=== PATIENT | female | born 2000 | race Caucasian/White ===

== ENCOUNTER 2023-09-02 12:50 | Emergency (ER) | payer MEDICAID, SELFPAY ==
[2023-09-02 13:13] VITALS: BP 121/52; PULSE 64; RESP 18; TEMP 36.6; O2SAT 100
--- NOTE | 2023-09-02 15:13 | ED.SKABFB ---
HPI - Skin/Abscess/Foreign Bdy General Chief complaint: Skin/Abscess/Foreign Body Stated complaint: rash Time Seen by Provider: 09/02/23 14:56 Source: patient Mode of arrival: ambulatory Limitations: no limitations History of Present Illness HPI narrative: This is a 22 year old female, about 16 weeks , that presents to the ER for itchy rash present since yesterday. Reports she has been on Amoxicillin for a little over a week for a toothache. Denies fevers. Related Data Allergies Allergy/AdvReac Type Severity Reaction Status Date / Time No Known Allergies Allergy Verified 09/02/23 14:58 Review of Systems Review of Systems: CONSTITUTIONAL: Denies fever SKIN: Reports rash and itching. All systems reviewed & are unremarkable except as noted in HPI and below PMFSH Past Medical History Medical History (Updated 09/02/23 @ 15:20 by Dulce Huggins PA-C) No active medical problems Social History Social History (Updated 09/02/23 @ 15:20 by Dulce Huggins PA-C) Substance use: never Exam Narrative: GENERAL: Well-appearing, well-nourished, and in no acute distress. HEAD: Normocephalic, atraumatic. EYES: EOMI. ENT: Tooth #3 is decaying, no surrounding erythema or edema EXTREMITIES: Normal range of motion. No edema. SKIN: Warm, dry. Diffuse maculopapular rash NEURO: No focal deficits. Alert and oriented x3. PSYCH: Normal mood and affect Course Consultations Consultation #1: Spoke with Dr. Miller who agrees with plan of care Date: 09/02/23 Vital Signs Vital signs: Vital Signs Temperature 97.9 F 09/02/23 13:13 Pulse Rate 64 09/02/23 13:13 Respiratory Rate 18 09/02/23 13:13 Blood Pressure 121/52 L 09/02/23 13:13 Pulse Oximetry 100 09/02/23 13:13 Temperature 97.9 F 09/02/23 13:13 Pulse Rate 64 09/02/23 13:13 Respiratory Rate 18 09/02/23 13:13 Blood Pressure 121/52 L 09/02/23 13:13 Pulse Oximetry 100 09/02/23 13:13 Procedures Other Procedure Procedure 1: Other Procedure: heart tones noted at 140 MDM - Skin/Abscess/Foreign Bdy MDM Narrative Medical decision making narrative: Patient presents to the emergency department for an itchy rash ongoing since yesterday. Reports started about 5 days into amoxicillin. She was on this for a toothache. There is no abscess of her tooth on exam. She was instructed she should follow up with a dentist for this. Instructed to stop her amoxicillin as it may be a reaction to this. Will be started on antihistamines and a steroid taper. Spoke with Dr. Miller who agrees with plan of care. She was given warnings to return to the ER Differential Diagnosis Differential diagnosis: Likely viral exanthem, urticaria and allergic reaction to drug Critical Care Time Critical Care Time Critical Care Time: No Discharge Plan Discharge Clinical Impression: Rash and nonspecific skin eruption Patient Disposition: Home, Self-Care Condition: Stable Instructions: Acute Rash (ED) Additional Instructions: Return to the emergency department if you experience fever, difficulty swallowing, trouble breathing, or any other symptoms that are concerning to you Stop Amoxicillin. Take a Pepcid and Zyrtec daily. Take steroid taper as prescribed. 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
== END 2023-09-02 15:37 | disposition home or self-care (01) ==
PROVIDERS: Emergency Provider Physician Assistant
DX: O99.892 Other specified diseases and conditions complicating childbirth (principal); R21 Rash and other nonspecific skin eruption; Z3A.16 16 weeks gestation of pregnancy
CPT/HCPCS: 99283

== ENCOUNTER 2024-01-07 10:42 | Observation (INO) | payer OTHER, SELFPAY ==
[2024-01-07] VITALS (13 sets, daily range): BP systolic 106–129; BP diastolic 53–84; PULSE 61–81; RESP 16; TEMP 36.6–37.1; BMI 28.3
--- NOTE | 2024-01-07 11:30 | OBADM ---
This patient, Johanna Mejia, admitted to the OB room OB Post 116 for observation. Patient/family oriented to hospital policies and general routines including ID bracelet, bed and alarms, visiting hours, pain management, procedures, bathroom and other care routines, personal items, smoking policy, room service/diet, and visiting hours. Patient/Family are encouraged to report perceived risks to care and to ask questions if they do not understand what they are told or what they should do.
--- NOTE | 2024-01-26 12:20 | PM.OBTRLD ---
OB - Triage/Final Diagnosis Visit Information Comments/Additional reasons for admission: I have assessed the risk for this patient, Johanna Castrockman, and determined that she would benefit from observation care. Final Diagnosis (1) Bleeding after intercourse: Code(s): N93.0 - Postcoital and contact bleeding Status: Acute
== END 2024-01-07 17:31 | disposition home or self-care (01) ==
PROVIDERS: Admitting Provider Obstetrics & Gynecology; Visit Provider Obstetrics & Gynecology
DX: O26.893 Other specified pregnancy related conditions, third trimester (principal); N93.0 Postcoital and contact bleeding; Z3A.34 34 weeks gestation of pregnancy
CPT/HCPCS: G0378; G0379

== ENCOUNTER 2024-02-01 11:57 | Outpatient (CLI) | payer OTHER, SELFPAY ==
[2024-02-01 12:47] VITALS: BP 120/71; PULSE 87
== END 2024-02-01 12:55 | disposition home or self-care (01) ==
LOC: ANHOBOP 12:42
PROVIDERS: Visit Provider Obstetrics & Gynecology
DX: O41.8X90 Other specified disorders of amniotic fluid and membranes, unspecified trimester, not applicable or unspecified (principal); Z3A.00 Weeks of gestation of pregnancy not specified
CPT/HCPCS: 59025

== ENCOUNTER 2024-02-12 04:55 | Inpatient (IN) | payer OTHER, SELFPAY ==
[2024-02-12] VITALS (90 sets, daily range): BP systolic 91–147; BP diastolic 52–122; PULSE 53–179; RESP 16–18; TEMP 36.7–37.6; O2SAT 95–100; BMI 29.5
[2024-02-12] MEDS: LACTATED RINGERS 1,000 ML 125 ML IV CONT ×2 (05:39→07:44)
[2024-02-12] MEDS: OXYTOCIN 30 UNITS/NS 500 ML 30 UNITS/500 ML BAG 6 UNITS IV CONT (05:39)
[2024-02-12 05:48] LABS: Basophils Absolute Auto 0.1 K/mm3 (0.0-0.1); Basophils Percent Auto 0.3 % (0.2-1.2); Eosinophils Absolute Auto 0.1 K/mm3 (0-0.3); Hematocrit 32.3 % (37.0-47.0); Hemoglobin 10.9 g/dL (12.0-15.0); Immature Granulocyte Absolute 0.07 K/mm3 (0.00-0.031); Immature Granulocyte Percent A 0.5 % (0-0.5); Lymphocytes Absolute Auto 3.13 K/mm3 (0.9-3.2); Lymphocytes Percent Auto 21.5 % (18.3-44.2); Mean Corpuscular HGB Conc 33.7 g/dl (32-36); Mean Corpuscular Hemoglobin 27.7 pg (26-34); Mean Corpuscular Volume 82.2 fl (80-100); Mean Platelet Volume 12.1 fl (7.4-10.4); Monocytes Absolute Auto 0.9 K/mm3 (0.1-0.6); Monocytes Percent Auto 6.2 % (2.6-8.5); Neutrophils Absolute Auto 10.3 K/mm3 (1.3-6.7); Neutrophils Percent Auto 70.5 % (45.5-73.1); Platelet Count Result 120 k/mm3 (150-375); Red Blood Count 3.93 M/mm3 (4.2-5.4); Red Cell Distribution Width 13.8 % (11.5-14.5); White Blood Count 14.5 K/mm3 (4.5-10.0)
--- NOTE | 2024-02-12 05:48 | LDADM ---
This patient, Johanna Mejia, was admitted to Labor/Delivery/Recovery 106 on 02/12/24 at 04:55. Plans for labor, pain management and were discussed with patient. Patient/family oriented to hospital policies and general routines including ID bracelet, bed and alarms, visiting hours, pain management, procedures, bathroom and other care routines, personal items, smoking policy, room service/diet and guest tray routines, infant security routines, and visiting hours. Patient/Family are encouraged to report perceived risks to care and to ask questions if they do not understand what they are told or what they should do. See OBIX for further documentation.
[2024-02-12 06:39] LABS: HIV 1/2 Ab P24 Ag Result Negative (Negative)
--- NOTE | 2024-02-12 07:14 | WPDANESEPP ---
Anes - Eval Pre Procedure Procedure: labor epidural Date/Time: 02/12/24 07:14 Preop Diagnosis: Hulsen Pre Op Diagnosis: IOL Patient Data Age: 23 Gender: F Height: 1.7 m Weight: 85.5 kg Last Vital Signs Temp 37.2 C 02/12/24 06:40 Pulse 80 02/12/24 07:00 BP 136/80 02/12/24 07:00 O2 Del Method Room Air 02/12/24 04:55 Allergies Allergy/AdvReac Type Severity Reaction Status Date / Time amoxicillin Allergy Rash Verified 02/03/24 09:48 Home Medications Medication Instructions Recorded Confirmed Type vit no.95-ferrous 1 tablet PO DAILY 01/07/24 02/03/24 History fumarate 28 mg-folic acid 800 mcg tablet () Laboratory Tests 02/12/24 05:11 WBC 14.5 H K/mm3 (4.5-10.0) RBC 3.93 L M/mm3 (4.2-5.4) Hgb 10.9 L g/dL (12.0-15.0) Hct 32.3 L % (37.0-47.0) MCV 82.2 fl (80-100) MCH 27.7 pg (26-34) MCHC 33.7 g/dl (32-36) RDW 13.8 % (11.5-14.5) Plt Count 120 L k/mm3 (150-375) MPV 12.1 H fl (7.4-10.4) Immature Gran % (Auto) 0.5 % (0-0.5) Neut % (Auto) 70.5 % (45.5-73.1) Lymph % (Auto) 21.5 % (18.3-44.2) Whitley % (Auto) 6.2 % (2.6-8.5) Eos % (Auto) 1.0 % (0-4.4) Baso % (Auto) 0.3 % (0.2-1.2) Lymph # (Auto) 3.13 K/mm3 (0.9-3.2) Whitley # (Auto) 0.9 H K/mm3 (0.1-0.6) Eos # (Auto) 0.1 K/mm3 (0-0.3) Baso # (Auto) 0.1 K/mm3 (0.0-0.1) Abs Immat Gran (auto) 0.07 H K/mm3 (0.00-0.031) Absolute Neuts (auto) 10.3 H K/mm3 (1.3-6.7) Absolute Nucleated RBC 0.000 K/mm3 (0.0-0.012) Nucleated RBC % 0.0 % (0.0-0.2) RPR Pending HIV 1&2 Ab/P24 Ag 4thGn Negative (Negative) Blood Type A Positive Antibody Screen Negative Patient hx anesthesia problems: none Family hx anesthesia problems: none Results Review: All pre-operative results and documents have been reviewed as part of the pre-operative evaluation. [facility], [facility] Past Medical History Medical History No active medical problems Family History Family History Sibling Congestive heart failure Social History Social History Smoking status: Never smoker Second hand tobacco smoke exposure: No Substance use: never Do You Feel Safe in your Home?: Yes Lack of Transportation: No Lack of Food: Never True Current Housing: I Have Housing Concerned About Future Housing: No Difficulty Paying Gas/Electric Bills: No Difficulty Paying for Meds: No Currently Unemployed: No Education: High School Diploma/GED Difficulty w/ Childcare or Family Care: No Spiritual care concerns: No Exam Day of Procedure 02/12/24 07:14 Patient weight: overweight Heart: regular rate and rhythm Lungs: clear to auscultation Airway: Mallampati scale class II Neurological: alert and oriented
[2024-02-12] MEDS: ACETAMINOPHEN 500 MG TABLET 1000 MG PO (08:23)
--- NOTE | 2024-02-12 08:40 | WPDOBADMIT ---
Obstetrics - Admit Note Admission Note: record reviewed. Additions to the history and/or subsequent changes in the physical findings follow. 23 y/o G1 at 39 1/7 weeks here desiring induction of labor. GBS neg. Receiving oxytocin. She is comfortable with epidural and just had SROM with clear fluid. AVSS NST reactive TOCO: contractions every 2-3 min ABD soft, nontender, gravid, vertex EXT nontender Cervix 5/90/0. Vertex. A: IUP at term with favorable cervix, now with SROM. P: Continue labor. Anticipate .
--- NOTE | 2024-02-12 10:35 | PM.OBPRVD ---
OB - Vaginal Delivery Note Procedure Delivery date: 02/12/24 Induction method: Per Pitocin Protocol Delivery monitor: External FHT and External Uterine Route of delivery: Episiotomy description: None Laceration Description: Vaginal (Right labial, left distal vaginal lacerations) Delivery repair: vicryl (3-0) Specimen: Yes (cord blood) Quantitative Blood Loss (ml): 350 Anesthesia type: Epidural Disposition: PACU Complications: None Narrative: 23 y/o G1 at 39 1/7 weeks gestation who presented to the hospital for induction of labor. Oxytocin was administered intravenously. Amniotomy was performed with return of clear fluid. She received an epidural for pain control. Her labor progressed and her cervix dilated completely. She pushed with good effort and delivered the 's head to the perineum, followed by the body. The nose and mouth were bulb suctioned. After a delay, the cord was clamped and cut. The infant was handed off the field. Cord blood was collected. The placenta delivered spontaneously and was grossly normal in appearance. The usual 3 vessel cord was noted. A right labial laceration and a left distal vaginal laceration were sustained. These were reapproximated using 3 0 Vicryl in interrupted figure of eight fashion. Excellent hemostasis resulted as did excellent reapproximation of the normal anatomy. Needle and instrument counts were correct. The patient was taken to recovery room in stable condition. The went to the nursery in stable condition. I was present and scrubbed for the entire delivery. [place] Baby Date of : 02/12/24 Time of : 10:15 Weeks of gestation at delivery: 39 Infant gender: Male Weight (pounds): 7 Weight (ounces): 1 presentation: vertex position: Left Occiput Anterior Placenta delivery description: Spontaneous and Normal Configuration Cord Vessel Description: 3 Vessels and Delayed Cord Clamping score one minute: 8 score five minutes: 8
--- NOTE | 2024-02-12 10:41 | PM.OBDSVD ---
DS: Admitting Diagnosis Discharge Date 02/14/24 Admitting Diagnosis IUP at 39 1/7 weeks DS: Discharge Diagnosis Discharge Diagnosis (1) (normal spontaneous vaginal delivery): Code(s): O80 - Encounter for full-term uncomplicated delivery Status: Acute OB - DS: Summary OB Procedures : None OB Procedures Intrapartum: Spontaneous Vag Delivery OB Procedures: : None Peripartum Data Laceration Description: Vaginal (Right labial, left distal vaginal lacerations) Episiotomy description: None Time Spent with Patient Time attestation: Total time spent providing and/or coordinating discharge services: DS: Data Data Completed and Pending Labs on day of discharge: Labs from last 24 hours 02/12/24 05:11 WBC 14.5 H RBC 3.93 L Hgb 10.9 L Hct 32.3 L MCV 82.2 MCH 27.7 MCHC 33.7 RDW 13.8 Plt Count 120 L MPV 12.1 H Immature Gran % (Auto) 0.5 Neut % (Auto) 70.5 Lymph % (Auto) 21.5 Anderson % (Auto) 6.2 Eos % (Auto) 1.0 Baso % (Auto) 0.3 Lymph # (Auto) 3.13 Anderson # (Auto) 0.9 H Eos # (Auto) 0.1 Baso # (Auto) 0.1 Abs Immat Gran (auto) 0.07 H Absolute Neuts (auto) 10.3 H Absolute Nucleated RBC 0.000 Nucleated RBC % 0.0 RPR Pending HIV 1&2 Ab/P24 Ag 4thGn Negative Blood Type A Positive Antibody Screen Negative Discharge Plan Discharge Attending physician on discharge: Liang Miller Discharging Clinician: Rocio Puri Anticipated Discharge Date/Time: 02/14/24 07:53 Patient Disposition: Home, Self-Care Activity: pelvic rest Diet: regular Discharge Instructions: Education: Mom and Baby Guide Given to: Mother Follow-Up: Call your delivering provider's office for an appointment to be seen in: 6 Weeks Mom and baby should come to the [facility] for the follow-up appointment. Appointment Date/Time:TBD Call [phone] if you are unable to keep your appointment time. BREAST CARE: * Wear a snug supportive bra. * For engorgement discomfort: Breast Feeding: * Apply warm moist washcloths * Express milk as needed to relieve engorgement * Wear loose clothing Bottle Feeding: * May apply ice packs * For sore nipples: * Identify correct latch-on * Apply warm moist washcloths before and after nursing * Air dry nipples after nursing * May apply Lansinoh cream to nipples PERINEAL CARE: * Until bleeding stops, use your aroldo bottle after urinating * Change your pad frequently throughout the day * You may take sitz baths several times a day (fill your bathtub with warm water and soak for 20 minutes.) Do NOT bathe in the water * No tub baths until seen by your physician - You may shower ACTIVITY: * Rest as much as possible. * Do not exercise or lift anything heavier than your baby (such as laundry or other children.) * Avoid stairs or driving as much as possible. * Do not put anything into the vagina. No douching, tampons, or sexual activity until seen by physician. NOTIFY PHYSICIAN IF YOU HAVE ANY QUESTIONS OR IF ANY OF THE FOLLOWING SYMPTOMS OCCUR: * If your episiotomy or incision becomes red, swollen, or more painful than what you have experienced in the hospital. * If your vaginal bleeding becomes foul smelling. * If your vaginal bleeding becomes more heavy than a period or if your bleeding changes from pink to bright red. However, you may pass an occasional walnut-sized clot once or twice for the first week . * If you experience a sharp, shooting pain in you calves. * If you discover a hard, reddened area on your breast or if you experience flu-like symptoms. DIET: * Eat regular, well-balanced meals. * Drink plenty of fluids daily. If , drink to thirst. Per Dr. Susan Alvarez, Call or return if temperature above 100.4? F, increased abdominal pain, increased vaginal bleeding or any n
[2024-02-12] MEDS: OXYTOCIN 30 UNITS/NS 500 ML 30 UNITS/500 ML BAG 125 UNITS IV CONT (10:49)
[2024-02-12 12:58] LABS: Rapid Plasma Reagin Non-Reactive (NonReactive)
--- NOTE | 2024-02-12 13:10 | OBPPTRN ---
Patient transferred to post room #292 via wheelchair. Support person present. Oriented to unit, room, information board, rooming in, admission packet and security measures. Patient verbalizes understanding.
[2024-02-13] MEDS: IBUPROFEN 600 MG TABLET PO ×2 (00:18→11:21)
[2024-02-13 04:34] VITALS: BP 108/61; PULSE 69; RESP 16; TEMP 36.8; O2SAT 100
[2024-02-13 05:05] LABS: Hematocrit 31.9 % (37.0-47.0)
--- NOTE | 2024-02-13 05:55 | PM.OBPNVD ---
OB - PN: Subj Subjective Date/time seen: 02/13/24 05:55 Patient comments: no complaints and pain well controlled baby status: doing well OB - PN: Obj Data Labs 02/13/24 04:33 Labs: Laboratory Results - last 24 hr 02/12/24 02/13/24 05:11 04:33 Hgb 10.0 L Hct 31.9 L RPR Non-reactive HIV 1&2 Ab/P24 Ag 4thGn Negative Blood Type A Positive Antibody Screen Negative OB - PN A/P Plan day: 1 Plan: routine care Time Spent With Patient Time: Total time spent is greater than 50% in coordination of care (as documented) at patient's floor/unit and/or counseling patient: Time with patient: less than 15 minutes Exam Const: General: cooperative, healthy appearing and comfortable Nutritional Appearance: average body habitus Orientation/consciousness: oriented to person, oriented to place and oriented to time Resp: Effort & Inspection: normal respiratory effort GI: Inspection: normal to inspection
[2024-02-13 09:40] VITALS: BP 114/51; PULSE 75; RESP 16; TEMP 37.3; O2SAT 98
--- NOTE | 2024-02-13 10:48 | WPDANLDPN2 ---
Anes-Prog Note L&D Date/Time: 02/13/24 10:48 Comfortable throughout: labor and delivery Neuraxial method: epidural Epidural/Spinal procedure site: tender Neuro status: Neuro function grossly intact. Cardiovascular status: normal Respiratory status: normal Airway patency: baseline Mental status: baseline Post-Op hydration status: normal Vital Signs: Last Vital Signs Temp 36.8 C 02/13/24 04:34 Pulse 69 02/13/24 04:34 Resp 16 02/13/24 04:34 BP 108/61 02/13/24 04:34 Pulse Ox 100 02/13/24 04:34 O2 Del Method Room Air 02/12/24 13:15 Pain score (VAS): 3/10 Post-procedural complaints: none Patient feedback: Patient satisfied with anesthetic care.
[2024-02-13] MEDS: MULTIVIT/MIN/PREN/FOL AC/IRON TABLET 1 TAB PO (11:20)
[2024-02-13] MEDS: DOCUSATE SODIUM 100 MG CAPSULE PO (11:21)
--- NOTE | 2024-02-13 12:24 | PC.NURSE ---
1200. Introductions were made, then consulted with patient to assess needs related to . Mother verbalized that so far she feels is going well, baby latches for 25 min or longer, has a good suck, and she does not have pain w feedings. Encouraged understanding of the benefits of skin to skin (demonstrating unwrapping infant and placing upright on her chest), stimulating with massage touch, changing positions to encourage wakefulness, how to watch for early feeding cues, responsive feeding, feeding on demand (aiming for 8-12 times in 24 hours, about every 2-3 hours), milk production, building/maintaining a milk supply, duration of feeding, signs of adequate intake/output and how to record on the feeding sheet. Reviewed when to initiate pumping to create a supply and when to introduce bottles to teach baby before mom goes back to work. Reviewed positioning and ear, shoulder, hip alignment, supporting the breast to facilitate a deep latch, asymmetrical latch (off-center), leading with the chin with a big, open, wide gape and body close to mother. latched optimally to the [left] breast in [cross cradle] position. Education given to the mother of how to visualize the suckling (with good rocking jaw motion), swallows (dropping of the lower jaw) and how to listen for drinking at the breast (the ka sound). Infant was [able] to maintain latch without pain to mother protecting the nipple with optimal positioning and latching. Reviewed comfort measures of healing with a warm, wet washcloth to rinse breast, then leave open to air-dry, good handwashing when or touching the breast/nipples to prevent infection. Mother voiced understanding of skin to skin, stimulating with massage touch, responsive feedings, hand expressed colostrum, talking to to encourage if it has been 2 -2.5 hours since the start of the last , to call if does not latch, or if there is discomfort with . Resources used for education were facilitated with the [visual educational handouts/ tool/mom and baby guide], Inpatient resources provided with feeding sheet, name written on the communication board, and the mom/baby guide. Parents voiced understanding of information, demonstrated learning and will call if there is a request for assistance. Reported to the Primary RN.
[2024-02-13 19:05] VITALS: BP 117/57; PULSE 73; RESP 16; TEMP 37.6; O2SAT 100
[2024-02-14] MEDS: IBUPROFEN 600 MG TABLET PO (02:30)
[2024-02-14] MEDS: ACETAMINOPHEN 325 MG TABLET 650 MG PO (02:33)
--- NOTE | 2024-02-14 07:51 | PM.OBPNVD ---
OB - PN: Subj Subjective Date/time seen: 02/14/24 07:20 Interval history: Doing well. Urinating without difficulty. Denies passing any large clots. Denies dizziness with ambulating. Tolerating po food and fluids. Bonding with . Desires DC home. Patient comments: pain well controlled [place] baby status: nursing well feeding status: breast and bottle feeding OB - PN: Obj Data Labs 02/13/24 04:33 OB - PN A/P Assessment and Plan (1) (normal spontaneous vaginal delivery): Code(s): O80 - Encounter for full-term uncomplicated delivery Status: Acute Plan day: 2 Plan: discharge home Time Spent With Patient Time: Total time spent is greater than 50% in coordination of care (as documented) at patient's floor/unit and/or counseling patient: Review of Systems Review of Systems: All systems reviewed & are unremarkable except as noted in HPI and below Exam Narrative: Alert and oriented. Mood is pleasant and cooperative. Perineum with minimal edema. Fundus firm and below umbilicus. Const: General: cooperative, healthy appearing, no acute distress and alert Orientation/consciousness: patient oriented x3 Limitations: no limitations Resp: Effort & Inspection: normal respiratory effort and able to speak in complete sentences Cardio: Rate: regular rate GI: Inspection: normal to inspection : General: Yes bladder normal to palpation External Female Exam: other (lochia WNL) Bimanual exam- vagina & uterus: bladder normal to palpation Other: Fundus firm and below U Skin: General skin exam: normal color and no rashes or lesions noted Neuro: General: patient oriented x3 and moves all extremities Cognition (Neuro): normal cognition Extrem: General: normal to inspection and no calf tenderness Psych: Appearance: grossly normal Mental Status: mental status grossly normal Affect: normal affect Thought process: Normal thought process present
[2024-02-14 08:41] VITALS: BP 124/78; PULSE 68; RESP 16; TEMP 36.8; O2SAT 100
[2024-02-14] MEDS: DOCUSATE SODIUM 100 MG CAPSULE PO (08:41)
[2024-02-14] MEDS: MULTIVIT/MIN/PREN/FOL AC/IRON TABLET 1 TAB PO (08:41)
[2024-02-14] MEDS: TETANUS,DIPHTHERIA,AC PERTUSSIS ADULT (0.5 ML) BOOSTRIX IM (08:47)
[2024-02-14 19:21] VITALS: BP 126/70; PULSE 71; RESP 12; TEMP 36.6; O2SAT 100
--- NOTE | 2024-02-15 15:30 | PC.NURSE ---
1500. Consulted with mother concerning needs and she shared she is currently pumping every 3 hours for 15 and feeding EBM. Mother reports she is fine with eating from a bottle bc she wants him to be able to do so when they go home. Discussed with mother ways to transition baby back to breast if she so desires and how to use the nipple shield as a tool to do so. Education given on making an outpatient appointment at [facility] and how to call our office for questions or concerns after discharge home. Mother is feeding appropriately for growth of and understands stimulating infant to eat if needed. has had appropriate feedings in the last 24 hours. Reinforced understanding of milk production, transition of milk, signs of adequate intake, transition of stool, prevention/relief of engorgement, plugged ducts, mastitis, responsive watching for feeding cues, the different methods of stimulating infant to breastfeed 1-3 hours after the start of the last feeding, community resources, and when to call a provider using the resource of the feeding sheet along with the mom and baby guide. Mother voiced understanding of the information shared, is confident to continue effectively her infant at home, when to call for assistance, denies any additional assistance or education at this time. Reported to the Primary RN.
[2024-02-16 08:57] VITALS: BP 126/65; PULSE 80; RESP 16; TEMP 36.9; O2SAT 100
== END 2024-02-14 20:33 | disposition home or self-care (01) | DRG 560 ==
LOC: ANHLDR 10:42 → ANHOB2 13:17
PROVIDERS: Admitting Provider Obstetrics & Gynecology; Visit Provider Obstetrics & Gynecology
DX: O70.0 First degree perineal laceration during delivery (principal); Z3A.39 39 weeks gestation of pregnancy; Z37.0 Single live birth
CPT/HCPCS: 36415; 85014; 85018; 85025; 86592; 86703; 86850; 86900; 86901; 90715; A9270; G0432; J2590; J2795; J7120